=== PATIENT | female | born 1980 | race Caucasian/White ===

== ENCOUNTER 2018-12-13 07:29 | Inpatient (IN) | payer OTHER ==
[~2018-12-13] VITALS: Ht 170.2 cm; Wt 65.8 kg
[2018-12-17] MEDS ORDERED: NORTREL 1-35 21 EAC1 PO (08:06)
[2018-12-17] MEDS ORDERED: NUVARING VAGIN1 EACH (08:07)
== END 2018-12-19 10:12 | DRG 743 ==
LOC: EDSTATUS 08:15 → ADM 08:15 → OB/GYN 12-17 06:27 → O/R 12-17 06:27 → SURH 12-17 08:15 → OB/GYN 12-17 09:59 → SURH 12-19 08:15 → OB/GYN 12-19 10:12
PROVIDERS: ADMIT Obstetrics & Gynecology
PROC: 0UT70ZZ Resection of Bilateral Fallopian Tubes, Open Approach (ICD-10-PCS; 2018-12-17)
PROC: 0UT90ZZ Resection of Uterus, Open Approach (ICD-10-PCS; principal; 2018-12-17 11:15)
DX: D25.1 Intramural leiomyoma of uterus (principal); D25.2 Subserosal leiomyoma of uterus; D25.0 Submucous leiomyoma of uterus; N73.6 Female pelvic peritoneal adhesions (postinfective); N72 Inflammatory disease of cervix uteri